=== PATIENT | female | born 1990 | race Caucasian/White ===

== ENCOUNTER 2017-01-16 11:27 | Emergency (ER) | payer BC, OTHER ==
--- NOTE | ~2017-01-16 | CR63 ---
[facility] A Service of [facility] [place] RADIOLOGY TEXT RESULTS PATIENT: JOSE A RICHARDS LOCATION: [facility] : [birth year] UNIT #: [id number] AGE: [address]: Greg Welsh MD SEX: F ORDER DR: [id number] [facility] [address] [place], [place] [address] [id number] MR#: [id number] Acc #: [id number] NAME: JOSE A RICHARDS : 1990 SEX: F STUDY DATE/TIME: UNIT: [facility] ROOM: STUDY DESCRIPTION: CR Chest 2 View Attending Physician: Greg Welsh M.D. Ordering Physician: Greg Welsh M.D. Primary Care Physician: Primary Care Physician No MEDICAL IMAGING REPORT This report is preliminary unless electronic signature is present EXAM Chest 2 views 01/16/2017 1230 hours HISTORY 26-year-old complaining of sharp stabbing pain in the right upper quadrant today with cough. COMPARISON None FINDINGS Upright PA and lateral views of the chest demonstrate normal cardiac, mediastinal and hilar contours. The lungs are hyperinflated but clear. There is no pleural effusion, pneumothorax or rib lesion. No free air seen in the abdomen. IMPRESSION Pulmonary hyperinflation with no acute cardiopulmonary findings. There is no free air seen in the abdomen. Dictated by... Aide Saucedo M.D. THIS IS AN ELECTRONICALLY VERIFIED REPORT Aide Saucedo M.D. at 01/17/2017 9:36 AM SMM/dagmar TD: 01/16/2017 14:31 JOB #: [id number] MEDICAL IMAGING REPORT Page 1 of 1 COPY
[2017-01-16 12:59] LABS: BASOPHIL% 0.5 % (0-2.5); EOSINOPHIL# 0.3 X10e3 (0-0.7); EOSINOPHIL% 3.3 % (0.0-7.0); HEMATOCRIT 40.2 % (35.0-45.0); HEMOGLOBIN 13.3 gm/dL (12.0-16.0); LYMPHOCYTE# 2.9 X10e3 (1.0-3.5); LYMPHOCYTE% 31.3 % (17.0-45.0); MEAN CELL VOLUME 90.9 FL (83-96); MEAN CORPUSCULAR HEMOGLOBIN 30.1 PG (28-34); MEAN CORPUSCULAR HGB CONC 33.1 g/dL (30-36); MEAN PLATELET VOLUME 10.1 FL (6.5-11.5); MONOCYTE# 0.7 X10e3 (0-1.0); NEUTROPHIL# 5.3 X10e3 (1.5-7.1); NEUTROPHIL% 56.9 % (40-75); PLATELET COUNT 195 X10e3 (140-420); RED BLOOD COUNT 4.43 X10e (3.90-5.30); RED CELL DISTRIBUTION WIDTH 13.2 % (11.0-15.5); WHITE BLOOD COUNT 9.3 X10e3 (4.0-10.5)
[2017-01-16 13:04] LABS: DIFF IND NO
[2017-01-16 13:09] LABS: URINE SOURCE CLEAN CATCH
[2017-01-16 13:15] LABS: URINE APPEARANCE CLEAR; URINE BILIRUBIN NEG (NEG); URINE BLOOD 3+ (NEG); URINE COLOR YELLOW; URINE GLUCOSE NEG (NEG); URINE KETONE NEG (NEG); URINE LEUKOCYTE ESTERASE NEG (NEG); URINE NITRATE NEG (NEG); URINE PH 5.5 (5-8); URINE PROTEIN NEG (NEG); URINE SPECIFIC GRAVITY 1.023 (1.003-1.035)
[2017-01-16 13:17] LABS: U HYALINE CASTS AUWI 0-2 /[LPF]; URBCS1 AUWI 50-100 /[HPF] (0-2); URINE BACTERIA AUWI NEG (NEGATIVE); URINE SQUAMOUS EPITHELIAL CELL NONE SEEN /[HPF]
[2017-01-16 13:19] LABS: CULTURE INDICATED? NO
[2017-01-16 13:29] LABS: ALBUMIN SERUM 4.2 g/dL (3.5-5.0); BILIRUBIN, DIRECT 0.1 mg/dL (0.0-0.2); BILIRUBIN,INDIRECT 0.6 mg/dL (0.0-0.9); BILIRUBIN,TOTAL 0.7 mg/dL (0.2-2.0); BUN/CREATININE RATIO 18.75; CALCIUM SERUM 8.7 mg/dL (8.4-10.2); CREATININE SERUM 0.8 mg/dL (0.6-1.4); GLOM FILT RATE Estimated 102.6 mL/min (>60)
== END 2017-01-16 14:55 | disposition home or self-care (01) ==
LOC: CED 11:27
PROVIDERS: Emergency Medicine
DX: R10.11 Right upper quadrant pain (principal); R07.89 Other chest pain; F17.200 Nicotine dependence, unspecified, uncomplicated
CPT/HCPCS: 36415; 71020; 80048; 80076; 81003; 82150; 83690; 84703; 85025; 99284